=== PATIENT | male | born 1975 | race Caucasian/White ===

== ENCOUNTER 2021-06-28 01:50 | Emergency (ER) | payer OTHER ==
[2021-06-28 01:57] VITALS: BP 152/94
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
== END 2021-06-28 04:16 | disposition home or self-care (01) ==
LOC: ED 01:50
DX: S39.012A Strain of muscle, fascia and tendon of lower back, initial encounter (principal); M62.830 Muscle spasm of back; M06.9 Rheumatoid arthritis, unspecified; L40.9 Psoriasis, unspecified; Z91.013 Allergy to seafood; V89.2XXA Person injured in unspecified motor-vehicle accident, traffic, initial encounter; Y93.89 Activity, other specified; Y92.89 Other specified places as the place of occurrence of the external cause; Y99.8 Other external cause status
CPT/HCPCS: 99282